=== PATIENT | male | born 1965 | race Caucasian/White ===

== ENCOUNTER → 2016-11-13 | Day surgery (SDC) | payer OTHER ==
[~2016-11-13] VITALS: Ht 170.2 cm; Wt 77.1 kg
--- NOTE | 2016-11-15 13:55 | Operative Report ---
Operative/Inv Procedure Report Surgery Date: 11/13/16 Name of Procedure: cystoscopy: TURBT/Ronaldo. Pre-Operative Diagnosis: recurrent bladder cancer Post-Operative Diagnosis: same Estimated Blood Loss: less than 50ml Surgeon/Offender Employment Specialist: TANESHA LOPEZ MD Anesthesia: laryngeal mask airway Drains: 18 fr kong for ronaldo. in RR Specimens: bladder tumor Complications: none Operative/Procedure Note Note: The patient was taken to the operating room, and placed on the OR table in supine position. Timeout was performed, with the patient awake, to confirm correct patient, procedure, anesthesia, antibiotics, and other pertinent adrienne- operative information. After adequate anesthesia and antibiotics, the patient was then placed in lithotomy stirrups, draped and prepped in usual surgical fashion. A 26 Iraqi resectoscope sheath with a 30 angle lens, and 24 Iraqi loop, was inserted into the urethra, and advanced into the bladder without difficulty. Upon entering the bladder, the bladder was noted to be mildly trabeculated. Both ureteral orifices were in their orthotopic position, with clear reflux bilaterally. A solitary 0.5 Cm papillary lesion was visualized on the anterior bladder, consistent with tumor. No other tumors were seen on thorough and systematic surveillance. Under direct visualization, this 0.5 cm papillary lesion was resected from superficial to deeper layers, including partial detrusor muscle base resection. The entire tumor was removed, along with a 0.5 cm margin of normal mucosa. The tumor fragments were evacuated, and sent to pathology. Cauterization of the base of the tumor resection was performed, in order to achieve good hemostasis. The bladder was copiously irrigated once again with 3 L of sorbitol. The resectoscope was removed leaving the bladder full. The bladder was drained by placing a 16 Iraqi Kong catheter , without difficulty, and with clear fluid. 10 mL of sterile water was placed in the balloon, and the Kong catheter was plugged after complete decompression of the bladder. The patient tolerated procedure well was then taken to recovery room in satisfactory condition. In the recovery room, Mitomycin 40mg in 40cc sterile saline, was instilled into the bladder using the indwelling 16fr catheter. The Kong was clamped, for one hour, with the pt turned from [id number] every 15minutes, during mitomycin instillation. The patient tolerated this part of the procedures well, the catheter was removed for the pt. to void. Findings: 0.5cm papillary tumor at anterior bladder: 2 O'clock position Discharge Disposition: PACU CC: TANESHA LOPEZ MD
== END ==
LOC: STS 03:10
DX: C67.3 Malignant neoplasm of anterior wall of bladder (principal); N32.89 Other specified disorders of bladder; F17.200 Nicotine dependence, unspecified, uncomplicated
CPT/HCPCS: 88307; J2250; J9280